=== PATIENT | male | born 1990 | race African-American/Black ===

== ENCOUNTER 2017-10-27 05:18 | Emergency (ER) | payer SELFPAY ==
[2017-10-27] MEDS ORDERED: LIDOCAINE 1% MPF 2 ML AMPULE ONE (05:31)
[2017-10-27] MEDS ORDERED: EPINEPHRINE/PF 1 MG/ML AMP ONE (05:36)
[2017-10-27] MEDS ORDERED: DEXAMETHASONE 4 MG/ML VIAL ONE (05:37)
[2017-10-27] MEDS ORDERED: LIDOCAINE VISCOUS 2% SOLN 15 ML UDC ONE (05:37)
[2017-10-27] MEDS ORDERED: NA CHLORIDE 0.9% 1,000 ML ONE (05:37)
[2017-10-27] MEDS ORDERED: DIPHENHYDRAMINE 50 MG/ML VIAL ONE (05:42)
[2017-10-27 05:52] LABS: Hematocrit 44.3 % (39.6-49.0); MCH 30.6 pg (27.0-35.0); RBC Red Blood Cell Count 4.98 M/uL (4.33-5.43)
[2017-10-27 05:53] LABS: Absolute Lymphocytes (CBC) 2.6 K/uL (0.7-4.9); Absolute Monocytes 0.9 K/uL (0.1-1.3); Absolute Neutrophil 2.6 K/uL (1.8-8.0); Basophils % 0.6 % (0-1.3); Eosinophils % 1.4 % (0-4.4); Lymphocytes % 41.7 % (15.3-44.8); MPV 8.1 fL (7.6-11.3); Monocytes % 14.4 % (3.3-12.3)
[2017-10-27 06:16] LABS: ALT/SGPT 25 U/L (12-78); AST/SGOT 27 U/L (15-37); Albumin 3.7 g/dL (3.4-5.0); Alkaline Phosphatase 95 U/L (45-117); BUN Blood Urea Nitrogen 13 mg/dL (7-18); Bicarbonate 28 mmol/L (21-32); Bilirubin Direct < 0.1 mg/dL (0-0.2); Bilirubin Total 0.4 mg/dL (0.2-1.0); Glucose Level 90 mg/dL (74-106); Magnesium 2.1 mg/dL (1.8-2.4); Potassium 4.3 mmol/L (3.5-5.1); Protein, Total 7.7 g/dL (6.4-8.2); Sodium Level 141 mmol/L (136-145)
--- NOTE | 2017-10-27 06:47 | EDPHYS ---
Physician Documentation [facility] Name: Baljinder Esquivel Jr Age: 27 yrs Sex: Male : 1990 Arrival Date: 10/27/2017 Time: 05:23 Bed 4 Private MD: ED Physician Robin Mccarty HPI: 10/27 06:37 This 27 yrs old Black Male presents to ER via Ambulatory with complaints of Breathing wa Difficulty, Difficulty Swallowing. 06:37 The patient has shortness of breath at rest. Onset: The symptoms/episode began/occurred wa just prior to arrival, work up with difficulty breathing and throat swelling. . Duration: The symptoms are continuous, and are steadily getting worse. The patient's shortness of breath is aggravated by swallowing, is alleviated by none. Associated signs and symptoms: Pertinent negatives: chest pain, productive cough, fever, vomiting. Severity of symptoms: At their worst the symptoms were moderate in the emergency department the symptoms are worse markedly. The patient has not experienced similar symptoms in the past. The patient has not recently seen a physician. per pt's girlfriend, pt had been having urticaria x several weeks. allergic to nuts. unsure of cause of rash. Historical: - Allergies: 05:25 No Known Allergies; ak1 - Home Meds: 05:25 None [Active]; ak1 - PMHx: 05:25 None; ak1 - PSHx: 05:25 None; ak1 - Immunization history:: Adult Immunizations unknown. - Social history:: Smoking status: Patient uses tobacco products, chewing tobacco. - Ebola Screening: : No symptoms or risks identified at this time. - Family history:: not pertinent. - Hospitalizations: : No recent hospitalization is reported. ROS: 06:39 Constitutional: Negative for fever, chills, and weight loss, Eyes: Negative for injury, wa pain, redness, and discharge, Neck: Negative for injury, pain, and swelling, Cardiovascular: Negative for chest pain, palpitations, and edema, Abdomen/GI: Negative for abdominal pain, nausea, vomiting, diarrhea, and constipation, Back: Negative for injury and pain, : Negative for injury, bleeding, discharge, and swelling, MS/Extremity: Negative for injury and deformity, Neuro: Negative for headache, weakness, numbness, tingling, and seizure, Psych: Negative for depression, anxiety, suicide ideation, homicidal ideation, and hallucinations. 06:39 ENT: Positive for difficulty swallowing, Negative for rhinorrhea, sinus congestion. 06:39 Respiratory: Positive for shortness of breath, at rest. 06:39 Skin: Positive for rash, diffusely. 06:39 All other systems are negative. Exam: 06:40 Constitutional: This is a well developed, well nourished patient who is awake, alert, wa and in no acute distress. Head/Face: Normocephalic, atraumatic. Eyes: Pupils equal round and reactive to light, extra-ocular motions intact. Lids and lashes normal. Conjunctiva and sclera are non-icteric and not injected. Cornea within normal limits. Periorbital areas with no swelling, redness, or edema. Neck: Trachea midline, no thyromegaly or masses palpated, and no cervical lymphadenopathy. Supple, full range of motion without nuchal rigidity, or vertebral point tenderness. No Meningismus. Chest/axilla: Normal chest wall appearance and motion. Nontender with no deformity. No lesions are appreciated. Cardiovascular: Regular rate and rhythm with a normal S1 and S2. No gallops, murmurs, or rubs. Normal PMI, no JVD. No pulse deficits. Abdomen/GI: Soft, non-tender, with normal bowel sounds. No distension or tympany. No guarding or rebound. No evidence of tenderness throughout. Back: No spinal tenderness. No costovertebral tenderness. Full range of motion. MS/ Extremity: Pulses equal, no cyanosis. Neurovascular intact. Full, normal range of motion. Neuro: Awake and alert, GCS 15, oriented to person, place, time, and situation. Cranial nerves II-XII grossly intact. Motor strength 5/5 in all extremities. Sensory grossly intact. Cerebellar exam normal. Normal gait. Psych: Awake, alert, with orientation to person, place and time. Behavior, mood, and affect are within normal limits. 06:40 ENT: Posterior pharynx: Uvula: midline, edematous. 06:40 Skin: urticaria, on the bilateral flanks and torso. Vital Signs: 05:28 BP 143 / 125; Pulse 91; Resp 28; Pulse Ox 100% on R/A; Weight 113.4 kg (R); Height 6 ak1 ft. 1 in. (185.42 cm); Pain 6/10; 05:30 Temp 98.2(TE); ak1 06:43 BP 135 / 75; Pulse 71; Resp 21; Pulse Ox 100% on 2 lpm NC; ak1 05:28 Body Mass Index 32.98 (113.40 kg, 185.42 cm) [facility] MDM: 05:34 Patient medically screened. ar 06:41 Differential diagnosis: stat IV O2 monitors. ill-appearing. r/o anaphylaxis. Stat IM wa epi. IV decadron. benadryl. reassess. Data reviewed: lab test result(s). Test interpretation: by ED physician or midlevel provider: normal labs. CXR normal. . ED course: noted large, edematous uvula consistent with uvulitis. lidocaine sprayed at back of throat for gag relief. tolerated well. . 10/27 05:35 Order name: BMP; Complete Time: 06:31 ar 10/27 05:35 Order name: CBC with Diff; Complete Time: 06:31 ar 10/27 05:35 Order name: XRAY CXR (1 view) ar 10/27 05:35 Order name: Hepatic Function; Complete Time: 06:31 ar 10/27 05:35 Order name: Magnesium; Complete Time: 06:31 ar 10/27 05:35 Order name: EKG; Complete Time: 05:36 ar 10/27 05:35 Order name: Cardiac monitoring; Complete Time: 05:39 ar 10/27 05:35 Order name: EKG - Nurse/Tech; Complete Time: 05:39 ar 10/27 05:35 Order name: IV Saline Lock; Complete Time: 05:39 ar 10/27 05:35 Order name: Labs collected and sent; Complete Time: 05:39 ar 10/27 05:35 Order name: O2 Per Protocol; Complete Time: 05:39 ar 10/27 05:35 Order name: O2 Sat Monitoring; Complete Time: 05:39 ar Administered Medications: 05:30 Drug: EPINEPHrine 1mg/mL 1:1,000 0.5 mg Route: IM; Site: left deltoid; jd3 07:05 Follow up: Response: No adverse reaction [facility] 05:30 Drug: Lidocaine (1 %) 20 mg {Note: given by Dr. Mccarty..} Route: Infiltration; jd3 05:35 Drug: Decadron - Dexamethasone 8 mg Route: IVP; Site: right antecubital; jd3 07:05 Follow up: Response: No adverse reaction ak1 05:35 Drug: NS 0.9% 1000 ml Route: IV; Rate: 1 bolus; Site: right antecubital; jd3 06:54 Follow up: IV Status: Completed infusion ak1 05:38 Drug: Benadryl 50 mg Route: IVP; Site: right antecubital; jd3 06:54 Follow up: Response: No adverse reaction ak1 05:43 CANCELLED (Other Intervention Used): viscous lidocaine 5 ml Mucous Membrane once jd3 Disposition: 10/27/17 06:46 Discharged to Home. Impression: Acute Allergic Reaction, Acute Uvulitis. - Condition is Stable. - Prescriptions for Prednisone 20 mg Oral Tablet - take 2 tablets by ORAL route once daily for 4 days; 8 tablet. - Medication Reconciliation Form, Thank You Letter, Antibiotic Education, Prescription Opioid Use form. - Follow up: Nidia Hernandez MD; When: 2 - 3 days; Reason: Recheck today's complaints. - Problem is new. - Symptoms have improved. - Notes: take prednisone as prescribed. return here for worsening concerns. you may use lidocaine to prevent gagging on your uvula Signatures: Dispatcher [employer] EDMS Blessing Lau RN RN ak1 Robin Mccarty MD MD wa Davies, Jonathon, RN RN jd3 Corrections: (The following items were deleted from the chart) 05:43 05:38 viscous lidocaine 5 ml Mucous Membrane once ordered. ar jd3 07:05 06:46 10/27/2017 06:46 Discharged to Home. Impression: Acute Allergic Reaction; Acute ak1 Uvulitis. Condition is Stable. Forms are Medication Reconciliation Form, Thank You Letter, Antibiotic Education, Prescription Opioid Use. Follow up: Nidia Hernandez; When: 2 - 3 days; Reason: Recheck today's complaints. Problem is new. Symptoms have improved. dinah
--- NOTE | 2017-10-27 06:47 | ER ---
Nurse's Notes [facility] Name: Baljinder Esquivel Jr Age: 27 yrs Sex: Male : 1990 Arrival Date: 10/27/2017 Time: 05:23 Bed 4 Private MD: Diagnosis: Acute Allergic Reaction;Acute Uvulitis Presentation: 10/27 05:23 Presenting complaint: states: 0505 pt woke unable to breath, unable to swallow his ak1 own secretions. Transition of care: patient was not received from another setting of care. Onset of symptoms was October 27, 2017. Risk Assessment: Do you want to hurt yourself or someone else? Patient reports no desire to harm self or others. Initial Sepsis Screen: Does the patient meet any 2 criteria? No. Patient's initial sepsis screen is negative. Does the patient have a suspected source of infection? No. Patient's initial sepsis screen is negative. Care prior to arrival: None. 05:23 Method Of Arrival: Ambulatory ak1 05:23 Acuity: TOMAS 2 ak1 Triage Assessment: 05:25 General: Appears distressed, uncomfortable, Behavior is cooperative, anxious. Pain: ak1 Complains of pain in throat. EENT: enlarged uvula. . EENT: pt unable to swallow own secretions. . Neuro: No deficits noted. Cardiovascular: No deficits noted. Respiratory: Reports shortness of breath Onset: The symptoms/episode began/occurred suddenly, the patient has severe shortness of breath. GI: No signs and/or symptoms were reported involving the gastrointestinal system. : No signs and/or symptoms were reported regarding the genitourinary system. Derm: No signs and/or symptoms reported regarding the dermatologic system. Musculoskeletal: No signs and/or symptoms reported regarding the musculoskeletal system. Historical: - Allergies: 05:25 No Known Allergies; ak1 - Home Meds: 05:25 None [Active]; ak1 - PMHx: 05:25 None; ak1 - PSHx: 05:25 None; ak1 - Immunization history:: Adult Immunizations unknown. - Social history:: Smoking status: Patient uses tobacco products, chewing tobacco. - Ebola Screening: : No symptoms or risks identified at this time. - Family history:: not pertinent. - Hospitalizations: : No recent hospitalization is reported. Screenin:28 Abuse screen: Denies threats or abuse. Denies injuries from another. Nutritional ak1 screening: No deficits noted. Tuberculosis screening: No symptoms or risk factors identified. Fall Risk None identified. Assessment: 05:29 Respiratory: Airway obstructed, Respiratory effort is labored, with nasal flaring. ak1 05:30 Respiratory: Breath sounds are clear bilaterally. EENT: Throat uvula inflamed. ak1 06:52 Cardiovascular: Rhythm is regular. ak1 Vital Signs: 05:28 BP 143 / 125; Pulse 91; Resp 28; Pulse Ox 100% on R/A; Weight 113.4 kg (R); Height 6 ak1 ft. 1 in. (185.42 cm); Pain 6/10; 05:30 Temp 98.2(TE); ak1 06:43 BP 135 / 75; Pulse 71; Resp 21; Pulse Ox 100% on 2 lpm NC; ak1 05:28 Body Mass Index 32.98 (113.40 kg, 185.42 cm) ak1 ED Course: 05:23 Patient arrived in ED. ak1 05:25 Triage completed. ak1 05:28 Patient has correct armband on for positive identification. Bed in low position. Call ak1 light in reach. Side rails up X2. Adult w/ patient. child monitor on. Pulse ox on. NIBP on. 05:28 Arm band placed on Patient placed in an exam room, on a stretcher, on oxygen, on ak1 quality assurance monitor, on pulse oximetry, Patient notified of wait time. 05:30 Inserted saline lock: 20 gauge in right antecubital area, using aseptic technique. jb4 Blood collected. 05:34 Robin Mccarty MD is Attending Physician. wa 05:37 Jignesh Kellogg, GAMALIEL is Primary Nurse. jd3 05:58 XRAY CXR (1 view) In Process Unspecified. EDMS 06:45 Nidia Hernandez MD is Referral Physician. wa 06:53 No provider procedures requiring assistance completed. IV discontinued, intact, ak1 bleeding controlled, No redness/swelling at site. Pressure dressing applied. Administered Medications: 05:30 Drug: EPINEPHrine 1mg/mL 1:1,000 0.5 mg Route: IM; Site: left deltoid; jd3 07:05 Follow up: Response: No adverse reaction ak1 05:30 Drug: Lidocaine (1 %) 20 mg {Note: given by Dr. Mccarty..} Route: Infiltration; jd3 05:35 Drug: Decadron - Dexamethasone 8 mg Route: IVP; Site: right antecubital; jd3 07:05 Follow up: Response: No adverse reaction ak1 05:35 Drug: NS 0.9% 1000 ml Route: IV; Rate: 1 bolus; Site: right antecubital; jd3 06:54 Follow up: IV Status: Completed infusion ak1 05:38 Drug: Benadryl 50 mg Route: IVP; Site: right antecubital; jd3 06:54 Follow up: Response: No adverse reaction ak1 05:43 CANCELLED (Other Intervention Used): viscous lidocaine 5 ml Mucous Membrane once jd3 Outcome: 06:46 Discharge ordered by . dinah 06:53 Discharged to home ambulatory, with family. ak1 06:53 Condition: improved 06:53 Discharge instructions given to patient, family, Instructed on discharge instructions, follow up and referral plans. Demonstrated understanding of instructions, follow-up care, medications, Prescriptions given X 2. 07:05 Patient left the ED. ak1 Signatures: Dispatcher [employer] EDMS Blessing Lau RN RN ak1 Baljinder Sanchez RN RN jb4 Robin Mccarty MD MD wa Davies, Jonathon RN RN jd3 Corrections: (The following items were deleted from the chart) 05:36 05:30 Cardiovascular: Rhythm is regular ak1 ak1
--- NOTE | 2017-10-27 11:11 | RAD REPORT ---
EXAM DESCRIPTION: RAD - Chest Single View - 10/27/2017 9:37 am CLINICAL HISTORY: SOB Chest pain. COMPARISON: No comparisons FINDINGS: Portable technique limits examination quality. The lungs are grossly clear. The heart is normal in size. No displaced fractures. IMPRESSION: No acute intrathoracic process suspected.
--- NOTE | 2017-10-28 08:55 | EKG ---
Test Date: 2017-10-27 Test Time: 05:29:37 Chemical Laboratory Scientist: BLANE MEASUREMENT RESULTS: Intervals: Rate: 79 CT: 138 QRSD: 82 QT: 368 QTc: 421 Oark: P: 42 CT: 138 QRS: 35 T: -12 INTERPRETIVE STATEMENTS: Normal sinus rhythm with sinus arrhythmia Cannot rule out Inferior infarct, age undetermined Abnormal ECG No previous ECG available for comparison Electronically Signed On 10-28-17 08:53:09 CDT by Cory Miller
== END 2017-10-27 07:05 | disposition home or self-care (01) ==
LOC: ER 05:18
DX: K12.2 Cellulitis and abscess of mouth (principal); R21 Rash and other nonspecific skin eruption; Z72.0 Tobacco use
CPT/HCPCS: 36415; 71045; 80048; 80076; 83735; 85025; 93005; 96361; 96372; 96374; 96375; 99285; J0171; J2001; J7030

== ENCOUNTER 2019-07-26 16:57 | Emergency (ER) | payer SELFPAY ==
[2019-07-26 17:56] LABS: Urine Blood 1+ (NEG); Urine Glucose NEGATIVE (NEG); Urine Protein TRACE (NEG); Urine Specific Gravity >1.030 (1.005-1.030)
--- NOTE | 2019-07-26 18:13 | ER ---
Nurse's Notes [facility] Name: Baljinder Esquivel Jr Age: 28 yrs Sex: Male : 1990 Arrival Date: 07/26/2019 Time: 17:01 Bed 18 Private MD: None, None Diagnosis: Urethritis and urethral syndrome Presentation: 07/25 17:11 Chief complaint: Patient states: Noticed stinging with urination since yesterday. No ll1 fever. No N/V/D. Coronavirus screen: Proceed with normal triage. Patient denies a cough. Patient denies shortness of breath or difficulty breathing. Patient denies measured and/or subjective temperature greater than 100.4F prior to today's visit. Patient denies travel on a cruise ship or to a country the [facility] currently lists as an affected area. Patient denies contact with known and/or suspected case of COVID-19. Ebola Screen: Patient denies travel to an Ebola-affected area in the 21 days before illness onset. Initial Sepsis Screen: Does the patient meet any 2 criteria? HR > 90 bpm. No. Patient's initial sepsis screen is negative. Risk Assessment: Do you want to hurt yourself or someone else? Patient reports no desire to harm self or others. Onset of symptoms was July 25, 2019. 17:11 Method Of Arrival: Ambulatory ll1 17:11 Acuity: TOMAS 4 ll1 Historical: - Allergies: 17:14 No Known Allergies; ll1 - PSHx: 17:14 None; ll1 - Immunization history:: Adult Immunizations up to date. - Social history:: Smoking status: Patient reports use of chewing tobacco. Patient/guardian denies using alcohol, street drugs. Screenin:00 Abuse screen: Denies threats or abuse. Nutritional screening: No deficits noted. Tuberculosis screening: No symptoms or risk factors identified. Fall Risk None identified. Assessment: 17:35 General: Appears in no apparent distress. Pain: Denies pain. Neuro: Level of Consciousness is awake, alert, Oriented to person, place. Cardiovascular: Capillary refill < 3 seconds Patient's skin is warm and dry. Respiratory: Airway is patent Respiratory effort is even, unlabored, Respiratory pattern is regular, symmetrical. GI: No signs and/or symptoms were reported involving the gastrointestinal system. Patient currently denies cramping, nausea, vomiting. : Urine is clear, Reports discomfort with urination a couple of times Denies burning with urination, cramping pain urinary frequency. Derm: Skin is intact, is healthy with good turgor. Musculoskeletal: Circulation, motion, and sensation intact. Vital Signs: 17:11 BP 156 / 100; Pulse 97; Resp 18; Temp 98.3; Pulse Ox 96% ; Pain 0/10; ll1 18:05 BP 163 / 92; ED Course: 17:01 Patient arrived in ED. dp 17:01 None, None is Private Physician. dp 17:07 [facility] Mar[facility]-C [facility] kb 17:07 Raymond Narayan MD is Attending Physician. kb 17:13 Triage completed. ll1 17:14 Arm band placed on Patient placed in an exam room, on a stretcher. ll1 17:35 Makenzie Coleman, RN is Primary Nurse. 18:19 No provider procedures requiring assistance completed. Patient did not have IV access ah during this emergency room visit. 18:20 Patient has correct armband on for positive identification. Bed in low position. Call light in reach. Side rails up X 1. Administered Medications: No medications were administered Outcome: 18:13 Discharge ordered by MD. kb 18:18 Discharged to home ambulatory. 18:18 Condition: good 18:18 Discharge instructions given to patient, Instructed on discharge instructions, follow up and referral plans. medication usage, Demonstrated understanding of instructions, follow-up care, medications, Prescriptions given X 1. 18:21 Patient left the ED. Signatures: Nicole Marr FNP-C FNP-Ckb Pena, Darian dp Harris, Amy, RN RN Sherrie Penn RN RN [facility]
--- NOTE | 2019-07-26 18:13 | EDPHYS ---
Physician Documentation [facility] Name: Baljinder Esquivel Jr Age: 28 yrs Sex: Male : 1990 Arrival Date: 07/26/2019 Time: 17:01 Bed 18 Private MD: None, None ED Physician Raymond Narayan HPI: 07/25 18:07 This 28 yrs old Black Male presents to ER via Ambulatory with complaints of Urinary kb Problem. 18:07 The patient presents with urinary symptoms, dysuria. Onset: The symptoms/episode kb began/occurred yesterday. Modifying factors: The symptoms are alleviated by nothing, the symptoms are aggravated by urinating. Associated signs and symptoms: Pertinent positives: dysuria, Pertinent negatives: abdominal pain, constipation, diarrhea, fever, hematuria, nausea, vomiting. Severity of symptoms: At their worst the symptoms were moderate, in the emergency department the symptoms are unchanged. The patient has not experienced similar symptoms in the past. The patient has not recently seen a physician. Pt reports he has had two episodes of burning with urination that started yesterday. is only sexual partner. No other symptoms reported. Historical: - Allergies: 17:14 No Known Allergies; ll1 - PSHx: 17:14 None; ll1 - Immunization history:: Adult Immunizations up to date. - Social history:: Smoking status: Patient reports use of chewing tobacco. Patient/guardian denies using alcohol, street drugs. ROS: 18:06 Constitutional: Negative for fever, chills, and weight loss, Cardiovascular: Negative kb for chest pain, palpitations, and edema, Respiratory: Negative for shortness of breath, cough, wheezing, and pleuritic chest pain, Abdomen/GI: Negative for abdominal pain, nausea, vomiting, diarrhea, and constipation, Back: Negative for injury and pain, MS/Extremity: Negative for injury and deformity, Skin: Negative for injury, rash, and discoloration, Neuro: Negative for headache, weakness, numbness, tingling, and seizure. 18:06 : Positive for burning with urination. Exam: 18:06 Constitutional: This is a well developed, well nourished patient who is awake, alert, kb and in no acute distress. Head/Face: Normocephalic, atraumatic. Chest/axilla: Normal chest wall appearance and motion. Nontender with no deformity. No lesions are appreciated. Cardiovascular: Regular rate and rhythm with a normal S1 and S2. No gallops, murmurs, or rubs. Normal PMI, no JVD. No pulse deficits. Respiratory: Lungs have equal breath sounds bilaterally, clear to auscultation and percussion. No rales, rhonchi or wheezes noted. No increased work of breathing, no retractions or nasal flaring. Abdomen/GI: Soft, non-tender, with normal bowel sounds. No distension or tympany. No guarding or rebound. No evidence of tenderness throughout. Back: No spinal tenderness. No costovertebral tenderness. Full range of motion. Male : Normal genitalia with no discharge or lesions. Skin: Warm, dry with normal turgor. Normal color with no rashes, no lesions, and no evidence of cellulitis. MS/ Extremity: Pulses equal, no cyanosis. Neurovascular intact. Full, normal range of motion. Neuro: Awake and alert, GCS 15, oriented to person, place, time, and situation. Cranial nerves II-XII grossly intact. Motor strength 5/5 in all extremities. Sensory grossly intact. Cerebellar exam normal. Normal gait. Vital Signs: 17:11 BP 156 / 100; Pulse 97; Resp 18; Temp 98.3; Pulse Ox 96% ; Pain 0/10; ll1 18:05 BP 163 / 92; ah MDM: 17:07 Patient medically screened. kb 18:06 Data reviewed: vital signs, nurses notes. Data interpreted: Pulse oximetry: on room air kb is 96 %. Interpretation: normal. Counseling: I had a detailed discussion with the patient and/or guardian regarding: the historical points, exam findings, and any diagnostic results supporting the discharge/admit diagnosis, lab results, the need for outpatient follow up, a family practitioner, to return to the emergency department if symptoms worsen or persist or if there are any questions or concerns that arise at home. 07/25 17:32 Order name: Urine Dipstick--Ancillary (enter results); Complete Time: 17:56 ss 07/25 17:37 Order name: Urine Microscopic Only kb 07/25 17:13 Order name: Urine Dipstick-Ancillary (obtain specimen); Complete Time: 17:31 kb Administered Medications: No medications were administered Disposition: 18:36 Co-signature as Attending Physician, Raymond Narayan MD. rn Disposition: 07/26/19 18:13 Discharged to Home. Impression: Urethritis and urethral syndrome. - Condition is Stable. - Discharge Instructions: Urethritis, Adult. - Prescriptions for Doxycycline Hyclate 100 mg Oral Tablet - take 1 tablet by ORAL route every 12 hours for 7 days; 14 tablet. - Medication Reconciliation Form, Thank You Letter, Antibiotic Education, Prescription Opioid Use form. - Follow up: Emergency Department; When: As needed; Reason: Worsening of condition. Follow up: Private Physician; When: 2 - 3 days; Reason: Recheck today's complaints, Continuance of care, Re-evaluation by your physician. Signatures: Dispatcher [employer] EDMS Nicole Marr, POLITICAL DIRECTOR-C POLITICAL DIRECTOR-Ckb Raymond Narayan MD MD rn Harris, Amy RN Sherrie Maloney RN RN ll1 Corrections: (The following items were deleted from the chart) 18:21 18:13 07/26/2019 18:13 Discharged to Home. Impression: Urethritis and urethral ah syndrome. Condition is Stable. Discharge Instructions: Urethritis, Adult. Prescriptions for Doxycycline Hyclate 100 mg Oral Tablet - take 1 tablet by ORAL route every 12 hours for 7 days; 14 tablet. and Forms are Medication Reconciliation Form, Thank You Letter, Antibiotic Education, Prescription Opioid Use. Follow up: Emergency Department; When: As needed; Reason: Worsening of condition. Follow up: Private Physician; When: 2 - 3 days; Reason: Recheck today's complaints, Continuance of care, Re-evaluation by your physician. kb
[2019-07-26 18:15] LABS: Urine Bacteria <20 /HPF (NONE SEEN)
[2019-07-26 18:16] LABS: Urine Culture Reflex Order NOT NEEDED; Urine Mucus 3+ /HPF (NONE SEEN)
[2019-07-26 18:17] LABS: Urine Amorphous Sediment 1+ /HPF (NONE SEEN)
[2019-07-26 18:29] VITALS: TEMP 98.3; O2SAT 96
[2019-07-26 18:31] VITALS: BP 163/92
== END 2019-07-26 18:21 | disposition home or self-care (01) ==
LOC: ER 16:57
DX: N34.2 Other urethritis (principal); F17.220 Nicotine dependence, chewing tobacco, uncomplicated
CPT/HCPCS: 81003; 81015; 99282